=== PATIENT | male | born 1985 | race Caucasian/White ===

== ENCOUNTER 2022-08-03 10:48 | Inpatient (IN) ==
--- NOTE | 2022-07-15 15:06 | PAT Medication Instructions ---
Medication Instructions Date of Service July 15, 2022 Home Medications celecoxib 100 mg capsule 100 mg PO BID PRN diclofenac sodium 75 mg tablet,delayed release 75 mg PO BID PRN duloxetine 60 mg capsule,delayed release sprinkle 60 mg PO TID loratadine 10 mg tablet 10 mg PO QPM naloxone 4 mg/actuation nasal spray (Narcan) 4 mg intranasal UD pantoprazole 40 mg tablet,delayed release 40 mg PO QPM prazosin 5 mg capsule 10 mg PO PM pregabalin 300 mg capsule 600 mg PO QPM propranolol 10 mg tablet 10 mg PO BID PRN zolmitriptan 5 mg tablet 0 mg PO .COMPLEX Continue as directed naloxone 4 mg/actuation nasal spray (Narcan) 4 mg intranasal UD zolmitriptan 5 mg tablet 0 mg PO .COMPLEX ASK your surgeon for instructions celecoxib 100 mg capsule 100 mg PO BID PRN diclofenac sodium 75 mg tablet,delayed release 75 mg PO BID PRN Take morning of surgery With a small sip of water, OTHERWISE NOTHING TO EAT OR DRINK AFTER MIDNIGHT: duloxetine 60 mg capsule,delayed release sprinkle 60 mg PO TID propranolol 10 mg tablet 10 mg PO BID PRN(if needed) Take evening before surgery duloxetine 60 mg capsule,delayed release sprinkle 60 mg PO TID loratadine 10 mg tablet 10 mg PO QPM pantoprazole 40 mg tablet,delayed release 40 mg PO QPM prazosin 5 mg capsule 10 mg PO PM pregabalin 300 mg capsule 600 mg PO QPM propranolol 10 mg tablet 10 mg PO BID PRN(if needed) Other Notes If you have any questions please call us at [phone] or [phone] or [phone] or [phone]
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
[~2022-08-03 10:48] MED LIST: ACETAMINOPHEN 500 MG TAB PO SCH; CeleBREX 200 MG CAP PO SCH; GABAPENTIN 900 MG DOSE PO SCH; LR 15ML/HR IV SCH; ceFAZolin 2000MG 2,000 MG/15 ML SYR IV SCH
[2022-08-03] MEDS ORDERED: fentaNYL citrate PF 100 MCG/2 ML VIAL IV PRN (11:18)
[2022-08-03] MEDS ORDERED: HYDROmorphone INJ 1 MG/ML SYRINGE IV PRN ×2 (11:18→16:04)
[2022-08-03] MEDS ORDERED: ONDANSETRON INJ 2 MG/ML 2 ML VIAL IV PRN ×2 (11:18→16:04)
[2022-08-03] MEDS ORDERED: ePHEDrine sulfate 50 MG/ML AMP IV PRN (11:18)
[2022-08-03] MEDS ORDERED: ATROPINE SULFATE 0.1 MG/ML 10ML SYR IV PRN (11:18)
[2022-08-03] MEDS ORDERED: DEXAMETHASONE SOD INJ 4 MG/ML VIAL ONE (12:13)
[2022-08-03] MEDS ORDERED: ONDANSETRON INJ 2 MG/ML 2 ML VIAL ONE (12:13)
[2022-08-03] MEDS ORDERED: HYDROmorphone INJ 2 MG/ML SYR/VIAL ONE (12:13)
[2022-08-03] MEDS ORDERED: PROPOFOL IV EMULSION 10 MG/ML 20 ML VIAL IV ONE (12:13)
--- NOTE | 2022-08-03 12:26 | History & Physical Bridge Note ---
Date of Service August 03, 2022 History & Physical Bridge Note I have examined the patient, reviewed the History & Physical and in the interval since the performance of the History & Physical I have noted the following changes of clinical significance: no changes noted
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
[2022-08-03] MEDS ORDERED: BUPIVACAINE/EPINEPHRINE 0.25% 1:200,000 30 ML VIAL ONE (12:43)
[2022-08-03] MEDS ORDERED: ceFAZolin 330 MG/ML 1 GM VIAL ONE (12:43)
[2022-08-03] MEDS ORDERED: ROCURONIUM BROMIDE 10 MG/ML 5 ML VIAL IV ONE ×3 (12:44→14:20)
[2022-08-03] MEDS ORDERED: ePHEDrine sulfate 50 MG/ML SYR ONE (13:36)
[2022-08-03] MEDS ORDERED: FLOSEAL HEMOSTATIC MATRIX 10ML TOP ONE (13:40)
[2022-08-03] MEDS ORDERED: NEOSTIGMINE METHYLSULFATE 1 MG/ML 10ML VIAL ONE (14:17)
[2022-08-03] MEDS ORDERED: GLYCOPYRROLATE 0.2 MG/ML VIAL ONE ×2 (14:17)
[2022-08-03] MEDS ORDERED: KETOROLAC 30 MG/ML VIAL ONE (14:27)
--- NOTE | 2022-08-03 14:27 | Operative Report ---
Post Operative Report Pre & Post Diagnosis Operation Date: 08/03/22 12:25 Pre-Op Diagnosis: Lumbar disc herniation with radiculopathy Post-Op Diagnosis: Lumbar disc herniation with radiculopathy I identified the patient and participated in the time-out.: Yes Procedure Operation Date: 08/03/22 12:25 Actual Procedures #1 lumbar decompression bilateral medial facetectomies and foraminotomies L5-S1. #2 posterior spinal fusion L5-S1. #3 patient posterior instrumentation L5-S1. #4 interbody fusion L5-S1. #5 placement of Spira 12 x 26 mm cage at L5-S1. #6 placement locally harvested morselized autograft in the posterior gutters. #7 placement of I factor combined with the talus in the interbody space and posterior lateral gutters. Surgeon Jt Patel, Interpreter And Translator Sheri Fitzpatrick Estimated Blood Loss 100 Findings Consistent with Post-Op Diagnosis Specimens None Indications This is a 36-year-old male who presents above-mentioned diagnosis after failing course of nonoperative care is here for surgical invention. Description of Procedure Patient was met with identified informed consent obtained. Patient was then taken to the operative suite underwent a patient placed in a prone position on the Lico table atop the Blue frame. All bony prominences well-padded eyes inspected to ensure no external pressure placed upon the. This point the lumbar spine was prepped and draped in normal sterile fashion. Sharp dissection with the assistance of Bovie cautery was performed down to and exposing the lamina and transverse processes of all 5 and S1 levels bilaterally. From caudal cephalad fashion complete laminectomy of L5 was performed including bilateral medial facetectomies and foraminotomies addressing severe spinal stenosis. Pedicle screws were then placed in L5 and S1 levels bilaterally with assistance of fluoroscopy and the properly sized jayden placed. By way of a trans foraminal approach on the left complete discectomy of L5-S1 was performed endplates corrected to subcortical bleeding bone and a 12 x 26 mm Spira cage with I factor tapped in position. The rods were then locked in final position bilaterally. The transverse processes of L5 and sacral ala burred to subcortical bleeding bone. I factor amount of the test and locally harvested morselized autograft was placed in the posterior gutters. 15 round COOPER drain inserted. The incision was then closed with 1 Vicryl in the fascia 2-0 Vicryl subcutaneously and 4 Monocryl for final skin closure. Steri-Strip sterile dressings placed. Patient awakened taken to PACU in stable condition. Please note spinal cord monitoring was utilized at the procedure no changes noted. Lastly Sheri Fitzpatrick was present at the entire surgery involved the patient positioning complex portions of the surgery and final skin closure. I attest to the content of the Intraoperative Record and any orders documented therein. Any exceptions are noted below.
--- NOTE | 2022-08-03 14:33 | Fluoroscopy Report ---
FL lumbar spine 2-3V CLINICAL HISTORY: L5-S1 DECOMPRSSION AND FUSION COMPARISON STUDY: None FLUOROSCOPY TIME: 20.7 seconds. FLUOROSCOPY IMAGES: 2 EXPOSURE DOSE: 14.55 mGy Air Kerma FINDINGS: Posterior interbody jayden and screw fusion with discectomy noted at L5-S1. The hardware appea rs to be intact. Alignment is satisfactory. Mild spondylitic spurring. IMPRESSION: Fluoroscopic assistance as above. ACT 112: Negative or not required by law. Electronically signed by: Arik Mooney M.D. 08/03/2022 2:32 PM
--- NOTE | 2022-08-03 15:39 | Anesthesiology Progress Note ---
Date of Service August 03, 2022 Anesthesia Post Procedure Vital Signs Vital Signs: Temp Pulse Pulse Resp BP Pulse Ox O2 Del Method 08/03/22 15:30 68 14 129/75 93 Room Air 08/03/22 15:20 76 13 134/86 94 Oxymask 08/03/22 15:10 79 14 149/80 H 97 Oxymask 08/03/22 15:02 97.0 F L 93 H 21 149/91 H 96 Oxymask 08/03/22 11:13 98.6 F 62 18 150/82 H 96 Room Air O2 Flow Rate 08/03/22 15:30 08/03/22 15:20 4 08/03/22 15:10 6 08/03/22 15:02 8 08/03/22 11:13 Pain Intensity Left Foot: Pain Intensity: 4 Transfer of Care Handoff Completed per policy Notes Mental Status: alert / awake / arousable and participated in evaluation Patient Amnestic to Procedure: Yes Nausea / Vomiting: adequately controlled Pain: adequately controlled Airway Patency, RR, SpO2: stable & adequate BP & HR: stable & adequate Hydration State: stable & adequate Anesthetic Complications: no major complications apparent and Pt Satisfied with anesthetic care
[2022-08-03] MEDS ORDERED: ONDANSETRON 4 MG OD TAB PO PRN (16:04)
[2022-08-03] MEDS ORDERED: PROPRANOLOL HCL 10 MG TAB PO PRN (16:04)
[2022-08-03] MEDS ORDERED: MAGNESIUM HYDROXIDE SUSP 30 ML UDC PO PRN (16:04)
[2022-08-03] MEDS ORDERED: PROMETHAZINE HCL 12.5 MG in SODIUM CHLORIDE 0.9% 50 ML IV PRN (16:04)
[2022-08-03] MEDS ORDERED: HYDROmorphone INJ 0.5 MG/0.5 ML SYR IV PRN ×2 (16:04→16:23)
[2022-08-03] MEDS ORDERED: LORazepam 2 MG/1 ML VIAL IV PRN (16:04)
[2022-08-03] MEDS ORDERED: FAMOTIDINE 20 MG TAB PO PRN (16:04)
[2022-08-03] MEDS ORDERED: METOCLOPRAMIDE HCL INJ 5 MG/ML 2 ML VIAL IV PRN (16:04)
[2022-08-03] MEDS ORDERED: diphenhydrAMINE Capsule 25 MG CAP PO PRN (16:04)
[2022-08-03] MEDS ORDERED: DO NOT ADMINISTER PNEUMOCOCCAL VACCINE PRN (16:04)
[2022-08-03] MEDS ORDERED: DO NOT ADMINISTER FLU VACCINE PRN (16:04)
[2022-08-03] MEDS ORDERED: ALUMINUM/MAGNESIUM SUSP 30 ML UDC PO PRN (16:04)
[2022-08-03] MEDS ORDERED: SOD PHOSPHATE/SOD BIPHOSPHATE ENEMA 132 ML BTL PR PRN (16:04)
[2022-08-03] MEDS ORDERED: bisacodyL 10 MG SUPP PR PRN (16:04)
[2022-08-03] MEDS ORDERED: hydrOXYzine HCl 25 MG TAB PO PRN (16:04)
[2022-08-03] MEDS ORDERED: LORazepam 0.5 MG TAB PO PRN (16:04)
[2022-08-03] MEDS ORDERED: ACETAMINOPHEN 500 MG TAB PO PRN (16:04)
[2022-08-03] MEDS ORDERED: NALOXONE HCL 0.4 MG/1 ML VIAL/CARP IV PRN (16:04)
[2022-08-03] MEDS: LACTATED RINGER'S 1,000 ML IV SCH ×2 (16:19→22:10)
[2022-08-03] MEDS: ACETAMINOPHEN 1,000 MG/100 ML VIAL IV PRN (16:34)
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
[2022-08-03] MEDS: oxyCODONE HCL IR 5 MG TAB (IMMEDIATE RELEASE) PO PRN (20:52)
[2022-08-03] MEDS: DOCUSATE SODIUM/SENNA 50/8.6MG TAB PO SCH (20:53)
[2022-08-03] MEDS: DULoxetine HCL 60 MG CAP PO SCH (20:54)
[2022-08-03] MEDS ORDERED: PANTOprazole 40 MG TAB PO SCH (21:00)
[2022-08-03] MEDS: ceFAZolin 2000MG 2,000 MG/15 ML SYR IV SCH (21:00)
[2022-08-03] MEDS ORDERED: LORATADINE 10 MG TAB PO SCH (21:00)
[2022-08-03] MEDS ORDERED: PREGABALIN 150 MG CAP PO SCH (21:00)
[2022-08-04] MEDS: ACETAMINOPHEN 1,000 MG/100 ML VIAL IV PRN (00:25)
[2022-08-04] MEDS: oxyCODONE HCL IR 5 MG TAB (IMMEDIATE RELEASE) PO PRN ×5 (02:08→19:50)
[2022-08-04] MEDS: ceFAZolin 2000MG 2,000 MG/15 ML SYR IV SCH (04:56)
[2022-08-04] MEDS: POLYETHYLENE (MIRALAX) 17 GM PACK PO SCH ×3 (05:00→17:55)
[2022-08-04] MEDS: traMADol HCL 50 MG TABLET PO PRN ×2 (07:26→17:57)
[2022-08-04] MEDS: DULoxetine HCL 60 MG CAP PO SCH ×3 (07:27→19:50)
[2022-08-04] MEDS: dexAMETHasone 6 MG in SYRINGE 0 ML IV SCH (07:28)
[2022-08-04 08:42] LABS: Basophils # (auto) 0.02 K/uL (0-0.2); Basophils % (auto) 0.1 %; Eosinophils # (auto) 0.01 K/uL (0-0.50); Eosinophils % (auto) 0.1 %; Hematocrit (blood only) 40.5 % (42.0-52.0); Hemoglobin 13.9 g/dl (14.0-18.0); Immature Granulocytes # (auto) 0.09 K/uL (0.01-0.20); Immature Granulocytes % (auto) 0.6 %; Lymphocytes # (auto) 1.92 K/uL (1.2-3.4); Lymphocytes % (auto) 12.6 %; Mean Corpuscular Hemoglobin 30.7 pg (25.0-34.0); Mean Corpuscular Hgb Conc 34.3 g/dL (32.0-36.0); Mean Corpuscular Volume 89.4 fL (80.0-100.0); Mean Platelet Volume 11.2 fL (9.4-12.4); Monocytes # (auto) 1.05 K/uL (0.11-0.59); Monocytes % (auto) 6.9 %; Neutrophils # (auto) 12.09 K/uL (1.40-6.50); Neutrophils % (auto) 79.7 %; Platelet Count 343 K/uL (130-400); RDW Standard Deviation 39.2 fL (36.4-46.3); Red Blood Count 4.53 M/uL (4.70-6.10); White Blood Count 15.18 K/ul (4.8-10.8)
[2022-08-04 09:15] LABS: BUN Creatinine Ratio 13.3 (10-20); Creatinine Clr Calc Pharmacy 137.9 ml/min; Est GFR (African American) 129.4 ml/min; Est GFR (Non-African American) 111.6 ml/min; Potassium 3.9 mmol/L (3.5-5.1)
--- NOTE | 2022-08-04 09:47 | Orthopedic Progress Note ---
Date of Service August 04, 2022 Assessment & Plan (1) Lumbar disc herniation with radiculopathy: Plan: This time initiate physical therapy monitor his COOPER output hopefully discharge home in the next few days. Admission and Anticipated Discharge Date Admission Date: August 03, 2022 Subjective Back pain controlled leg pain markedly improved Physical Exam Physical Exam: Patient is in the chair at the bedside. Is constricted testing. Appears com fortable. Results & Data Vital Signs (Past 12 Hours) Vital Signs Temp Pulse Resp BP Pulse Ox O2 Del Method 08/04/22 07:19 36.8 C 81 18 132/74 96 Room Air 08/04/22 02:10 36.4 C L 81 16 135/71 94 Room Air 08/03/22 23:09 36.7 C 99 H 16 147/75 H 93 Room Air
--- NOTE | 2022-08-04 10:17 | Hospitalist Progress Note ---
Date of Service August 04, 2022 Assessment & Plan (1) H/O Spinal surgery: (2) Chronic back pain: Plan: This is a 36yo M with a PMH of chronic back pain, migraine headaches, GERD, PTSD, DEMETRIUS with cpap non-compliance and other medical problems listed below who is POD#1 s/p lumbar decompression bilateral medial facetectomies and foraminotomies and posterior spinal fusion L5-S1 by Dr. Patel. POD#1 s/p lumbar decompression bilateral medial facetectomies and foraminotomies and posterior spinal fusion L5-S1 by Dr. Patel. Per ortho for pain control, wound care, anticoagulation and activities Monitor H&H (EBL 100ml, pre-ophgb 15.2) Continue incentive spirometry, PT/OT when appropriate Home medications related to back pain per primary Anemia pre op hgb 15.2, today 13.9 likely dilutional EBL 100ml; RADHA drain with 150ml Leukocytosis wbc 15.18k no s/sx of infection likely 2/2 steroid or reactive monitor Elevated fasting glucose glucose 126 obtain a1c in a.m. likely in setting of surg/steroid use (3) Depression: (4) PTSD (post-traumatic stress disorder): Plan: Continue duloxetine, prazosin mood stable (5) History of migraine: Plan: Takes propranolol, zolmitriptan PRN (6) Sleep apnea: Plan: Non compliant with device DVT Ppx: SCDs per primary service [facility]CP[facility] Thank you for this consultation. We will follow the patient with you during their hospital stay. You can [facility] a [facility] of [facility] via [employer]. A total of 35 minutes was spent with greater than 50% of that time personally viewing all current laboratory work and diagnostic imaging studies obtained in the ED. Additionally, I was able to view the patients past medication reconciliation and history with direct visualization in the patients chart. Included in the time above, a portion of that time was spent assessing the pa tient while discussing and collaborating with specialists, if necessary, and making medical decision making on treatment plan. All of the above was collaborated with Dr. Perez. Please see addendum for further details. Admission and Anticipated Discharge Date Admission Date: August 03, 2022 Supervising Physician Co-Signing Physician Notes I have seen and examined the patient and have discussed the case with the provider above. I agree with the assessment and plan as stated. POD#1 s/p lumbar decompression bilateral medial facetectomies and foraminotomies and posterior spinal fusion L5-S1 Patient comfortable; pain well controlled. Continue home meds Incentive spirometry Rest per primary Subjective Patient was seen and examined in room 306. Follow-up lumbar surgery. He feels well this morning. Manning catheter was removed and he is currently urinating without difficulty. He does have incisional back pain but denies any radicular symptoms. He denies fever, chills, sweats, lightheadedness, dizziness, chest pain, shortness of breath nausea, vomiting, abdominal pain. Review of Systems Review of Systems: All systems reviewed & are unremarkable except as noted in HPI & below Physical Exam Physical Exam: Gen: WD/WN, M, lying in bed, NAD, A&O x3 HEENT: Normocephalic, atraumatic, conjunctivae moist, sclerae anicteric, mucous membranes moist. Lung: Clear to Auscultation bilaterally, no wheezes/rales/rhonchi Heart: Regular rate, regular rhythm, no murmurs, rubs, or gallops Abdomen: Soft, NT, ND +BS x 4 Extremities: No edema, lumbar dressing cdi, radha drain with serosang drainage Skin: Warm, no rash, negative turgor, + Tattoos b/l upper ext and chest wall Results & Data Results & Data Vital Signs (Past 12 Hours) Vital Signs Temp Pulse Resp BP Pulse Ox O2 Del Method 08/04/22 07:19 36.8 C 81 18 132/74 96 Room Air 08/04/22 02:10 36.4 C L 81 16 135/71 94 Room Air 08/03/22 23:09 36.7 C 99 H 16 147/75 H 93 Room Air Laboratory Results Short CBC 08/04/22 Range/Units 07:17 WBC 15.18 H (4.8-10.8) K/ul Hgb 13.9 L (14.0-18.0) g/dl Hct 40.5 L (42.0-52.0) % Plt Count 343 (130-400) K/uL BMP 08/04/22 07:17 Sodium 138 Potassium 3.9 Chloride 105 Carbon Dioxide 25 BUN 11 Creatinine 0.83 Glucose 126 H Calcium 9.0 Medications Administered Current Inpatient Medications Acetaminophen (Acetaminophen 500 Mg Tab) 1,000 mg PO Q8H PRN PRN Reason: MILD Pain Scale 1,2,3 & Pre PT Stop: 09/02/22 16:03 Al Hydrox/Mg Hydrox/Simethicone (Aluminum/Magnesium Susp 30 Ml Udc) 30 ml PO Q6H PRN PRN Reason: Dyspepsia Stop: 09/02/22 16:03 Bisacodyl (Bisacodyl 10 Mg Supp) 10 mg GA DAILY PRN PRN Reason: Constipation Stop: 09/02/22 16:03 Diphenhydramine HCl (Diphenhydramine Capsule 25 Mg Cap) 25 mg PO Q6H PRN PRN Reason: Allergic Rhinitis/Insomnia Stop: 09/02/22 16:03 Last Admin: 08/04/22 02:08 Dose: 25 mg Duloxetine HCl (Duloxetine Hcl 60 Mg Cap) 60 mg PO TID HENNY Stop: 09/02/22 20:59 Last Admin: 08/04/22 07:27 Dose: 60 mg Famotidine (Famotidine 20 Mg Tab) 20 mg PO Q12H PRN PRN Reason: Dyspepsia Stop: 09/02/22 16:03 Hydromorphone HCl (Hydromorphone Inj 1 Mg/Ml Syringe) 1 mg IV Q3H PRN PRN Reason: SEVERE Pain (Scale 7,8,9,10) Stop: 08/17/22 16:03 Hydromorphone HCl (Hydromorphone Inj 0.5 Mg/0.5 Ml Syr) 0.5 mg IV Q3H PRN PRN Reason: MODERATE Pain (Scale 4,5,6) & Pre PT Stop: 08/17/22 16:22 Hydroxyzine HCl (Hydroxyzine Hcl 25 Mg Tab) 25 mg PO Q8H PRN PRN Reason: Anxiety Stop: 09/02/22 16:03 Promethazine HCl 12.5 mg/ (Sodium Chloride) 50.5 mls @ 202 mls/hr IV Q6H PRN PRN Reason: Nausea &/or Vomiting Stop: 09/02/22 16:03 Acetaminophen (Ofirmev) 1,000 mg in 100 mls @ 400 mls/hr IV Q8H PRN PRN Reason: Pain Rating 1-3 & Pre PT Stop: 08/04/22 16:04 Last Infusion: 08/04/22 00:40 Dose: Infused Dexamethasone 6 mg/ Syringe 1.5 mls @ 1 mls/min IV DAILY HENNY Stop: 08/06/22 09:02 Last Admin: 08/04/22 07:28 Dose: 1 mls/min Influenza Virus Vaccine Quadrival (Do Not Administer Flu Vaccine) 1 each N/A PRN PRN PRN Reason: Notification Stop: 09/02/22 16:03 Loratadine (Loratadine 10 Mg Tab) 10 mg PO QPM HENNY Stop: 09/02/22 20:59 Last Admin: 08/03/22 20:53 Dose: 10 mg Lorazepam (Lorazepam 0.5 Mg Tab) 0.5 mg PO Q8H PRN PRN Reason: Sedation/Anxiety Stop: 09/02/22 16:03 Lorazepam (Lorazepam 2 Mg/1 Ml Vial) 0.5 mg IV Q8H PRN PRN Reason: Sedation/Anxiety Stop: 09/02/22 16:03 Magnesium Hydroxide (Magnesium Hydroxide Susp 30 Ml Udc) 30 ml PO Q24H PRN PRN Reason: Constipation Stop: 09/02/22 16:03 Metoclopramide HCl (Metoclopramide Hcl Inj 5 Mg/Ml 2 Ml Vial) 10 mg IV Q6H PRN PRN Reason: Nausea &/or Vomiting Stop: 09/02/22 16:03 Miscellaneous (Prazosin - Order Awaiting Action) 1 each N/A QS HENNY Stop: 09/03/22 00:00 Last Admin: 08/04/22 07:29 Dose: Not Given Naloxone HCl (Naloxone Hcl 0.4 Mg/1 Ml Vial/Carp) 0.1 mg IV Q5M PRN PRN Reason: Oversedation/Resp depression Stop: 09/02/22 16:03 Ondansetron HCl (Ondansetron Inj 2 Mg/Ml 2 Ml Vial) 4 mg IV Q6H PRN PRN Reason: Nausea &/or Vomiting Stop: 09/02/22 16:03 Ondansetron HCl (Ondansetron 4 Mg Od Tab) 4 mg PO Q6H PRN PRN Reason: Nausea Stop: 09/02/22 16:03 Oxycodone HCl (Oxycodone Hcl Ir 5 Mg Tab (Immediate Release)) 5 - 10 mg PO Q4H PRN PRN Reason: Pain & Pre PT Stop: 08/17/22 16:03 Last Admin: 08/04/22 06:25 Dose: 5 mg Pantoprazole Sodium (Pantoprazole 40 Mg Tab) 40 mg PO QPM HENNY Stop: 09/02/22 20:59 Last Admin: 08/03/22 20:53 Dose: 40 mg Pneumococcal Polyvalent Vaccine (Do Not Administer Pneumococcal Vaccine) 1 each N/A PRN PRN PRN Reason: Notification Stop: 09/02/22 16:03 Polyethylene Glycol (Polyethylene (Miralax) 17 Gm Pack) 17 gm PO Q6 HENNY Stop: 09/03/22 05:59 Last Admin: 08/04/22 05:00 Dose: 17 gm Pregabalin (Pregabalin 150 Mg Cap) 600 mg PO QPM HENNY Stop: 09/02/22 20:59 Last Admin: 08/03/22 20:59 Dose: 600 mg Propranolol HCl (Propranolol Hcl 10 Mg Tab) 10 mg PO BID PRN PRN Reason: migraines Stop: 09/02/22 16:03 Senna/Docusate Sodium (Docusate Sodium/Senna 50/8.6mg Tab) 2 tab PO HS HENNY Stop: 09/02/22 20:59 Last Admin: 08/03/22 20:53 Dose: 2 tab Sodium Biphosphate/Sodium Phosphate (Sod Phosphate/Sod Biphosphate Enema 132 Ml Btl) 132 ml GA ONE PRN PRN Reason: Constipation Stop: 09/02/22 16:03 Tramadol HCl (Tramadol Hcl 50 Mg Tablet) 50 - 100 mg PO Q4H PRN PRN Reason: Moderate-Severe pain & Pre PT Stop: 09/02/22 16:03 Last Admin: 08/04/22 07:26 Dose: 50 mg
[2022-08-04] MEDS: DOCUSATE SODIUM/SENNA 50/8.6MG TAB PO SCH (19:49)
[2022-08-04] MEDS ORDERED: PANTOprazole 40 MG TAB PO SCH ×2 (20:00→21:00)
[2022-08-04] MEDS ORDERED: LORATADINE 10 MG TAB PO SCH (20:00)
[2022-08-04] MEDS ORDERED: PRAZOSIN HCL 5 MG CAP PO SCH (20:00)
[2022-08-04] MEDS ORDERED: PREGABALIN 150 MG CAP PO SCH (20:00)
[2022-08-04] MEDS ORDERED: PRAZOSIN 5 MG PO SCH (21:00)
[2022-08-05] MEDS: POLYETHYLENE (MIRALAX) 17 GM PACK PO SCH ×3 (00:23→11:08)
[2022-08-05] MEDS: oxyCODONE HCL IR 5 MG TAB (IMMEDIATE RELEASE) PO PRN (05:40)
[2022-08-05 06:50] LABS: Basophils # (auto) 0.02 K/uL (0-0.2); Basophils % (auto) 0.1 %; Eosinophils # (auto) 0.03 K/uL (0-0.50); Eosinophils % (auto) 0.2 %; Immature Granulocytes # (auto) 0.07 K/uL (0.01-0.20); Immature Granulocytes % (auto) 0.5 %; Lymphocytes # (auto) 3.45 K/uL (1.2-3.4); Lymphocytes % (auto) 25.4 %; Mean Corpuscular Hemoglobin 30.8 pg (25.0-34.0); Mean Corpuscular Hgb Conc 34.1 g/dL (32.0-36.0); Mean Corpuscular Volume 90.3 fL (80.0-100.0); Mean Platelet Volume 10.8 fL (9.4-12.4); Monocytes # (auto) 0.99 K/uL (0.11-0.59); Monocytes % (auto) 7.3 %; Neutrophils # (auto) 9.03 K/uL (1.40-6.50); Neutrophils % (auto) 66.5 %; Platelet Count 318 K/uL (130-400); RDW Coefficient of Variation 11.9 % (11.5-14.5); RDW Standard Deviation 39.4 fL (36.4-46.3); Red Blood Count 4.54 M/uL (4.70-6.10); White Blood Count 13.59 K/ul (4.8-10.8)
[2022-08-05 07:10] LABS: BUN Creatinine Ratio 17.7 (10-20); Calcium 8.7 mg/dl (8.5-10.1); Creatinine Clr Calc Pharmacy 144.8 ml/min; Est GFR (Non-African American) 113.9 ml/min
[2022-08-05] MEDS: traMADol HCL 50 MG TABLET PO PRN (07:45)
[2022-08-05] MEDS: DULoxetine HCL 60 MG CAP PO SCH ×2 (07:47→09:00)
[2022-08-05] MEDS: dexAMETHasone 6 MG in SYRINGE 0 ML IV SCH (07:47)
--- NOTE | 2022-08-05 08:32 | Discharge Summary ---
Date of Service August 05, 2022 Admission HPI Per Admitting Provider This is a 36-year-old male who presents with chronic persistent back and leg pain after failing course of nonoperative care is here for surgical invention. Admission Exam (Per Admitting) Constitutional WD/WN, vitals as above Eyes normal visual nesbitt by confrontation ENMT external ear and nose normal, oropharynx normal Neck normal visual inspection Respiratory normal respiratory effort Cardiovascular Extremities: normal capillary refill Gastrointestinal (Abdomen) Inspection/Auscultation: abdomen normal to inspection Musculoskeletal Spine: + pain with thoraco-lumbar ROM Extremities: extremities normal to inspection and strength 5/5 throughout Skin no rashes, warm and dry Neurologic normal touch/pain/proprioception and moves all extremities Psychiatric A+Ox3, euthymic affect Discharge Data Consultations 08/03/22 16:04 Consult Hospitalist Routine Procedures Performed Operation Date: 08/03/22 12:25 Actual Procedures p L5-S1 Decompression and Fusion, Spinal Cord Monitoring(Not Applicable) - Jt Patel, Hospital Course (1) Lumbar disc herniation with radiculopathy: Patient is being discharged home on postoperative day 2 status post TLIF L5-S1. He had an uneventful hospital course. Lab values have been stable. He is made great progress in physical therapy nearly daily. COOPER drain output is diminishing appropriately. Pain is controlled. He is passing flatus but no bowel movement. Discharge Instructions ACTIVITY RECOMMENDATIONS: SELF CARE INSTRUCTIONS AFTER THORACIC/LUMBAR FUSIONS 1. You may walk to your tolerance. It is good exercise for your legs and back. Expect some back and intermittent leg aches and pains. 2. You may perform "counter-top" level activities (make a sandwich, luis with a project, etc.). 3. No bending or lifting of more than 10 pounds or back twisting of any nature (roll like a log when turning in bed). 4. You may ride in a car for 20-30 minutes at a time. No driving until after your first visit with your doctor. 5. Frequent changes of position and restricting sitting to 30 minutes at a time will help limit the amount of back spasms and stiffness you may experience. 6. You may discontinue the use of ambulatory aids (cane, crutches, etc.) once your strength and confidence allow. 7. You may web marketing manager the shower and let water strike your incision when you arrive home at least once daily. Do not take a tub bath, sit in a hot tub or go into a swimming pool until after your first recheck in the office. SPECIAL CARE INSTRUCTIONS: VERY IMPORTANT TO READ AND REVIEW A. Your surgical incision has been closed with a cosmetic suture under the skin that will dissolve in about 6 weeks. In 14 days, you can use a pair of clean scissors and cut the suture that is left outside of the skin at the ends of your incision. 1. The small skin tapes can be removed 7 days after surgery if they have not fallen off by that point. 2. You may keep the wound open to air as much as possible to promote healing after post-op day number 5 unless told otherwise by your doctor. 3. If you think the wound looks like it is becoming infected (redness or worsening drainage) and/or you are experiencing fever, chill or worsening back pain and muscle spasms, contact the office so that we may evaluate you as soon as possible. B. Complications are uncommon, but please contact us if you have any signs or symptoms of: 1. wound infection (fever higher than 102.5 degrees F, redness, separation of wound, drainage, or increasing pain from the incision) 2. blood clots in legs (pain, swelling, redness and warmth in legs) 3. urinary tract infection (fever higher than 102.5 degrees F, burning upon urination or increased frequency of urination) 4. nerve problems (inability to walk on your toes or heels, numbness, loss of bowel or bladder control) 5. any other symptoms that concern you C. Please call the office at if you have any concerns or questions about your operation or recovery. D. No smoking! Smoking drastically decreases the chance of a solid fusion. E. Do not take any anti-inflammatory medications (Indocin, Advil, Motrin, Aspirin, Naprosyn, etc.) as these may inhibit the chance of a solid fusion. Tylenol is okay to take for pain. MANAGING PAIN AFTER SPINAL SURGERY 1. Narcotic medication is intended for short-term use and will be provided for surgical pain. Surgical pain usually lasts for a period of 4-6 weeks. Narcotic medication includes Percocet, Vicodin, Darvocet, Tylenol #3 or Lortab. 2. Longer-term pain is more appropriately treated with non-narcotic medication such as Tylenol ES. 3. Muscle spasm is not appropriately treated with narcotics. Muscle relaxers such as Soma, Flexeril or Skelaxin can be used along with Tylenol ES. 4. Remember that we all live with some "aches and pains". This is not unusual or uncommon after an injury or as we get older. a. Back pain is expected and may include muscle spasms for 4 to 6 weeks after surgery. The pain should gradually improve. If the pain worsens for no apparent reason, please contact the office. b. Intermittent leg pain may also be experienced and should not be concerned about unless it worsens for no apparent reason. If so, please contact the office. 5. We will provide appropriate medication within the normal guidelines of their prescribed use. We will also be very cautious and aware of potential abuse and extended duration of patients' medication needs. a. Pain medications are for your comfort and to assist with sleep and rest so that the tissue can heal. They are not provided in order to return to normal activity and should not be used through the day. To do so or worsening pain at night can result from ongoing tissue damage and development of tolerance to the prescribed medicine. 6. Please allow 2-3 days to process refills. Prescriptions will not be mailed but must be picked up at the office. FOLLOW UP VISIT: Keep your scheduled follow-up appointment. Any questions, please call the office at .
--- NOTE | 2022-08-05 10:48 | Hospitalist Progress Note ---
Date of Service August 05, 2022 Assessment & Plan (1) H/O Spinal surgery: (2) Chronic back pain: Plan: This is a 36yo M with a PMH of chronic back pain, migraine headaches, GERD, PTSD, DEMETRIUS with cpap non-compliance and other medical problems listed below who is POD#2 s/p lumbar decompression bilateral medial facetectomies and foraminotomies and posterior spinal fusion L5-S1 by Dr. Patel. POD#2 s/p lumbar decompression bilateral medial facetectomies and foraminotomies and posterior spinal fusion L5-S1 by Dr. Patel. Per ortho for pain control, wound care, anticoagulation and activities Monitor H&H (EBL 100ml, pre-ophgb 15.2) Continue incentive spirometry, PT/OT when appropriate Home medications related to back pain per primary Anemia pre op hgb 15.2, today 14 likely dilutional, expected EBL 100ml; RADHA drain with 150ml Leukocytosis wbc 15.18k --> 13.59 no s/sx of infection likely 2/2 steroid or reactive monitor Elevated fasting glucose glucose 126 a1c pending (3) Depression: (4) PTSD (post-traumatic stress disorder): Plan: Continue duloxetine, prazosin mood stable pt wished to take his own supply, this was discussed with pharmacy (5) History of migraine: Plan: Takes propranolol, zolmitriptan PRN (6) Sleep apnea: Plan: Non compliant with device DVT Ppx: SCDs per primary service PCP: [facility] Thank you for this consultation. We will follow the patient with you during their hospital stay. You [facility] via [employer]. A total of 35 minutes was spent with greater than 50% of that time personally viewing all current laboratory work and diagnostic imaging studies obtained in the ED. Additionally, I was able to view the patients past medication reconciliation and history with direct visualization in the patients chart. Included in the time above, a portion of that time was spent assessing the patient while discussing and collaborating with specialists, if necessary, and making medical decision making on treatment plan. All of the above was collaborated with Dr. Whitmore. Please see addendum for further details. Admission and Anticipated Discharge Date Admission Date: August 03, 2022 Supervising Physician Co-Signing Physician Notes Attending Addendum: care coordinated with PHI Colby Chart reviewed please refer to her notes for full details, I agree with her notes Unfortunately patient has over the left the hospital before I could examine him ASSESSMENT AND PLAN diagnoses and plan of care as per PHI Whitmore MD Subjective Patient was seen and examined in room 306. Follow-up lumbar surgery. He feels well this morning. Plan for d/c later this morning. Denies f/c/s, chest pain, sob, n/v/d. Passing flatus. He is requesting a seat riser for toilet and he was encouraged he could pick this up at local pharmacy or [employer]. Review of Systems Review of Systems: All systems reviewed & are unremarkable except as noted in HPI & below Physical Exam Physical Exam: Gen: WD/WN, M, lying in bed, NAD, A&O x3 HEENT: Normocephalic, atraumatic, conjunctivae moist, sclerae anicteric, mucous membranes moist. Lung: Clear to Auscultation bilaterally, no wheezes/rales/rhonchi Heart: Regular rate, regular rhythm, no murmurs, rubs, or gallops Abdomen: Soft, NT, ND +BS x 4 Extremities: No edema, lumbar dressing cdi, radha drain with serosang drainage Skin: Warm, no rash, negative turgor, + Tattoos b/l upper ext and chest wall Results & Data Results & Data Vital Signs (Past 12 Hours) Vital Signs Temp Pulse Resp BP Pulse Ox O2 Del Method 08/05/22 08:57 36.8 C 79 18 121/70 95 08/05/22 07:34 36.8 C 79 18 121/70 95 Room Air Laboratory Results Short CBC 08/05/22 Range/Units 05:46 WBC 13.59 H (4.8-10.8) K/ul Hgb 14.0 (14.0-18.0) g/dl Hct 41.0 L (42.0-52.0) % Plt Count 318 (130-400) K/uL BMP 08/05/22 05:46 Sodium 138 Potassium 4.0 Chloride 101 Carbon Dioxide 29 BUN 14 Creatinine 0.79 Glucose 91 Calcium 8.7 Medications Administered Current Inpatient Medications Acetaminophen (Acetaminophen 500 Mg Tab) 1,000 mg PO Q8H PRN PRN Reason: MILD Pain Scale 1,2,3 & Pre PT Stop: 09/02/22 16:03 Last Admin: 08/05/22 09:02 Dose: 1,000 mg Al Hydrox/Mg Hydrox/Simethicone (Aluminum/Magnesium Susp 30 Ml Udc) 30 ml PO Q6H PRN PRN Reason: Dyspepsia Stop: 09/02/22 16:03 Bisacodyl (Bisacodyl 10 Mg Supp) 10 mg [place] DAILY PRN PRN Reason: Constipation Stop: 09/02/22 16:03 Diphenhydramine HCl (Diphenhydramine Capsule 25 Mg Cap) 25 mg PO Q6H PRN PRN Reason: Allergic Rhinitis/Insomnia Stop: 09/02/22 16:03 Last Admin: 08/04/22 02:08 Dose: 25 mg Duloxetine HCl (Duloxetine Hcl 60 Mg Cap) 60 mg PO TID HENNY Stop: 09/02/22 20:59 Last Admin: 08/05/22 09:00 Dose: 60 mg Famotidine (Famotidine 20 Mg Tab) 20 mg PO Q12H PRN PRN Reason: Dyspepsia Stop: 09/02/22 16:03 Hydromorphone HCl (Hydromorphone Inj 1 Mg/Ml Syringe) 1 mg IV Q3H PRN PRN Reason: SEVERE Pain (Scale 7,8,9,10) Stop: 08/17/22 16:03 Hydromorphone HCl (Hydromorphone Inj 0.5 Mg/0.5 Ml Syr) 0.5 mg IV Q3H PRN PRN Reason: MODERATE Pain (Scale 4,5,6) & Pre PT Stop: 08/17/22 16:22 Hydroxyzine HCl (Hydroxyzine Hcl 25 Mg Tab) 25 mg PO Q8H PRN PRN Reason: Anxiety Stop: 09/02/22 16:03 Promethazine HCl 12.5 mg/ (Sodium Chloride) 50.5 mls @ 202 mls/hr IV Q6H PRN PRN Reason: Nausea &/or Vomiting Stop: 09/02/22 16:03 Dexamethasone 6 mg/ Syringe 1.5 mls @ 1 mls/min IV DAILY HENNY Stop: 08/06/22 09:02 Last Admin: 08/05/22 07:47 Dose: 1 mls/min Influenza Virus Vaccine Quadrival (Do Not Administer Flu Vaccine) 1 each N/A PRN PRN PRN Reason: Notification Stop: 09/02/22 16:03 Loratadine (Loratadine 10 Mg Tab) 10 mg PO Q24H HENNY Stop: 09/03/22 19:59 Last Admin: 08/04/22 19:50 Dose: 10 mg Lorazepam (Lorazepam 0.5 Mg Tab) 0.5 mg PO Q8H PRN PRN Reason: Sedation/Anxiety Stop: 09/02/22 16:03 Last Admin: 08/04/22 21:56 Dose: 0.5 mg Lorazepam (Lorazepam 2 Mg/1 Ml Vial) 0.5 mg IV Q8H PRN PRN Reason: Sedation/Anxiety Stop: 09/02/22 16:03 Magnesium Hydroxide (Magnesium Hydroxide Susp 30 Ml Udc) 30 ml PO Q24H PRN PRN Reason: Constipation Stop: 09/02/22 16:03 Metoclopramide HCl (Metoclopramide Hcl Inj 5 Mg/Ml 2 Ml Vial) 10 mg IV Q6H PRN PRN Reason: Nausea &/or Vomiting Stop: 09/02/22 16:03 Naloxone HCl (Naloxone Hcl 0.4 Mg/1 Ml Vial/Carp) 0.1 mg IV Q5M PRN PRN Reason: Oversedation/Resp depression Stop: 09/02/22 16:03 Ondansetron HCl (Ondansetron Inj 2 Mg/Ml 2 Ml Vial) 4 mg IV Q6H PRN PRN Reason: Nausea &/or Vomiting Stop: 09/02/22 16:03 Ondansetron HCl (Ondansetron 4 Mg Od Tab) 4 mg PO Q6H PRN PRN Reason: Nausea Stop: 09/02/22 16:03 Oxycodone HCl (Oxycodone Hcl Ir 5 Mg Tab (Immediate Release)) 5 - 10 mg PO Q4H PRN PRN Reason: Pain & Pre PT Stop: 08/17/22 16:03 Last Admin: 08/05/22 05:40 Dose: 5 mg Pantoprazole Sodium (Pantoprazole 40 Mg Tab) 40 mg PO Q24H HENNY Stop: 09/03/22 19:59 Last Admin: 08/04/22 19:50 Dose: 40 mg Pneumococcal Polyvalent Vaccine (Do Not Administer Pneumococcal Vaccine) 1 each N/A PRN PRN PRN Reason: Notification Stop: 09/02/22 16:03 Polyethylene Glycol (Polyethylene (Miralax) 17 Gm Pack) 17 gm PO Q6 HENNY Stop: 09/03/22 05:59 Last Admin: 08/05/22 05:41 Dose: 17 gm Prazosin HCl (Prazosin Hcl 5 Mg Cap) 10 mg PO Q24H HENNY Stop: 09/03/22 19:59 Last Admin: 08/04/22 19:50 Dose: 10 mg Pregabalin (Pregabalin 150 Mg Cap) 600 mg PO Q24H HENNY Stop: 09/03/22 19:59 Last Admin: 08/04/22 19:51 Dose: 600 mg Propranolol HCl (Propranolol Hcl 10 Mg Tab) 10 mg PO BID PRN PRN Reason: migraines Stop: 09/02/22 16:03 Senna/Docusate Sodium (Docusate Sodium/Senna 50/8.6mg Tab) 2 tab PO HS HENNY Stop: 09/02/22 20:59 Last Admin: 08/04/22 19:49 Dose: 2 tab Sodium Biphosphate/Sodium Phosphate (Sod Phosphate/Sod Biphosphate Enema 132 Ml Btl) 132 ml [place] ONE PRN PRN Reason: Constipation Stop: 09/02/22 16:03 Tramadol HCl (Tramadol Hcl 50 Mg Tablet) 50 - 100 mg PO Q4H PRN PRN Reason: Moderate-Severe pain & Pre PT Stop: 09/02/22 16:03 Last Admin: 08/05/22 07:45 Dose: 50 mg
[2022-08-05 11:39] LABS: Estimated Average Glucose 120 mg/dl; Hemoglobin A1C 5.8 % (4.5-5.6)
== END 2022-08-05 12:28 | disposition home or self-care (01) | DRG 455 ==
LOC: ASU 10:48 → 3E 14:31